=== PATIENT | female | born 1985 | race Caucasian/White ===

== ENCOUNTER 2017-11-01 13:30 | Inpatient (IN) | payer SELFPAY ==
[~2017-11-01] VITALS: Ht 149.9 cm; Wt 72.6 kg
--- NOTE | ~2017-11-01 | OP ---
PATIENT NAME: MALIKA AYALA MEDICAL RECORD: [id number] LOCATION:[id number] ADMISSION DATE:11/01/17 SURGEON: PAUL COTTO MD DATE OF OPERATION: 11/01/2017 PREOPERATIVE DIAGNOSES: 1. at term. 2. Prior section. 3. Spontaneous rupture of membranes. 4. Hepatitis C. POSTOPERATIVE DIAGNOSES: 1. at term. 2. Prior section. 3. Spontaneous rupture of membranes. 4. Hepatitis C. PROCEDURE: Repeat low transverse section. SURGEON: Paul Cotto MD ANESTHESIOLOGIST: Dr. Duenas ANESTHETIC: Spinal. FINDINGS: Viable female , vertex presentation, Apgars were 8 and 9, weight 2713 grams. Unremarkable uterus, tubes, and ovaries bilaterally. SPECIMENS REMOVED: Placenta. SPECIMEN DISPOSITION: Discarded. ESTIMATED BLOOD LOSS: Less than or equal to 800 cc. FLUIDS: 1200 cc lactated Ringer's. URINE OUTPUT: 225 cc of clear urine. COMPLICATIONS: None. DRAINS: Munoz to gravity. INDICATIONS: The patient is a 32-year-old G5, para 2-0-1-3 at 40 weeks and 2 days by patient history. The patient is not known to this practice and has been seen out of state. The patient has not been seen by an obstetrical provider for over a month. Earlier she was seen and labor was ruled out but had spontaneous rupture of membranes at 1845 this evening. The patient is consented for a repeat section and any indicated procedure. DESCRIPTION OF PROCEDURE: After informed consent was assured, the patient was taken to the operating room, anesthetic is obtained. The patient is now prepped and draped. An incision is made over the old scar after assessment of the anesthetic. The incision was carried down to the underlying layer of the fascia, which is opened OPERATIVE REPORT [id number] MALIKA AYALA in the midline and extended laterally. The rectus bellies were dissected free superiorly and inferiorly and then the rectus bellies were in the midline. Peritoneum was entered sharply and then the opening extended. The bladder blade was inserted. Low transverse hysterotomy was performed and infant was delivered onto the abdomen atraumatically. Cord was doubly clamped and cut and the was passed to the attendant. Placenta is now removed via Crede maneuver. Uterus was exteriorized, cleared of all clot and debris and the uterus closed in a running locked fashion with chromic stitch. [id number] stitch was applied at the left margin to obtain hemostasis at that corner. Inspection reveals adequate hemostasis as the posterior cul-de-sac is irrigated. Posterior cul-de-sac explored. No foreign objects identified and the uterus now returned to the abdomen. Again, the pelvis was irrigated and the pericolic gutters were explored. The incisions inspected and found to be hemostatic. Rectus bellies reapproximated in the midline with a single stitch of chromic. Fascia was closed with PDS. Subcutaneous tissues were irrigated, bleeding vessels cauterized, and then a plain gut stitch was used to reapproximate the space. Maryann are applied. Sterile dressing is applied on the wound. Sponge, lap and needle count is correct times 2 at the close of this procedure. TRANSINT:[id number] Voice Confirmation ID: [id number] DOCUMENT ID: [id number] PAUL COTTO MD CC: [id number] DICTATION DATE: 11/01/172127 GOVERNMENT PROFESSOR: 11/01/172251 ADM IN [place] [id number] [place] [id number]
[2017-11-01 15:53] LABS: APPEARANCE HAZY (CLEAR); BILIRUBIN NEGATIVE (NEGATIVE); COLOR YELLOW (YELLOW); GLUCOSE NEGATIVE (NEGATIVE); KETONE NEGATIVE (NEGATIVE); NITRITE NEGATIVE (NEGATIVE); PROTEIN TRACE mg/dL (NEGATIVE); UROBILINOGEN NORMAL (NORMAL)
[2017-11-01 15:55] LABS: BACTERIA MODERATE /hpf (NONE SEEN)
[2017-11-01 15:57] LABS: YEAST >1+ /hpf (NONE SEEN)
[2017-11-01 15:59] LABS: UDS - AMPHET NEGATIVE QUAL (NEGATIVE); UDS - BARB NEGATIVE QUAL (NEGATIVE); UDS - BENZO NEGATIVE QUAL (NEGATIVE); UDS - COCAINE NEGATIVE QUAL (NEGATIVE); UDS - OPIATE NEGATIVE QUAL (NEGATIVE); UDS - PCP NEGATIVE QUAL (NEGATIVE); UDS - THC POSITIVE QUAL (NEGATIVE)
[2017-11-01 19:57] LABS: HEMATOCRIT 36.7 % (36.0-48.0); HEMOGLOBIN 12.7 g/dL (12-16); MCH 32.4 pg (26.0-34.0); MCHC 34.6 g/dL (31.0-37.0); MCV 93.6 fL (80.0-100.0); MEAN PLATELET VOLUME 10.6 fL (7.4-10.4); RBC 3.92 10x6/uL (4.00-5.40); RDW 14.2 % (11.5-14.5); WBC 10.6 10x3/uL (4.8-10.8)
[2017-11-01] MEDS ORDERED: PRENATAL COMPLE1 TAB PO (20:20)
[2017-11-01] MEDS ORDERED: FERROUS SULFAT325 MG PO (20:21)
[2017-11-01 20:28] VITALS: BP 125/75; Ht 149.9 cm; Wt 72.6 kg
[2017-11-01 22:13] VITALS: BP 133/75
[2017-11-01 22:53] VITALS: BP 150/91
[2017-11-01 23:07] VITALS: BP 141/79
[2017-11-01 23:23] VITALS: BP 150/74
[2017-11-02] VITALS (11 sets, daily range): BP systolic 108–152; BP diastolic 57–86
[2017-11-02 08:49] LABS: HIV 1 & 2- RAPID SCREEN NEGATIVE (NEGATIVE)
[2017-11-03 03:00] VITALS: BP 119/64
[2017-11-03 04:15] LABS: RAPID PLASMA REAGIN Non Reactive (Non Reactive)
[2017-11-03 07:23] LABS: BASOPHILS 0.1 % (0-2); EOSINOPHILS 0.9 % (0-7); HEMATOCRIT 33.6 % (36.0-48.0); HEMOGLOBIN 11.4 g/dL (12-16); IMMATURE GRANULOCYTES 0.2 % (0-5); LYMPHOCYTES 27.4 % (15-50); MCH 31.9 pg (26.0-34.0); MCHC 33.9 g/dL (31.0-37.0); MCV 94.1 fL (80.0-100.0); MEAN PLATELET VOLUME 10.2 fL (7.4-10.4); MONOCYTES 6.3 % (2-11); NEUTROPHILS 65.1 % (40-80); PLATELET COUNT 171 10x3/uL (130-400); RBC 3.57 10x6/uL (4.00-5.40); RDW 14.4 % (11.5-14.5); WBC 9.5 10x3/uL (4.8-10.8)
[2017-11-03 09:11] VITALS: BP 124/76
[2017-11-03] MEDS ORDERED: IBUPROFEN800 MG PO (17:11)
[2017-11-03] MEDS ORDERED: PERCOCET 7.5/321 TAB PO (17:12)
[2017-11-04 17:07] LABS: RUBELLA IGG 1.52 index (Immune >0.99)
== END 2017-11-03 18:10 | disposition home or self-care (01) | DRG 765 ==
LOC: D.LDO 13:30 → D.LD 19:00
PROVIDERS: Obstetrics & Gynecology
PROC: 10D00Z1 Extraction of Products of Conception, Low, Open Approach (ICD-10-PCS; principal; 2017-11-01 20:56)
DX: O34.219 Maternal care for unspecified type scar from previous cesarean delivery (principal); O98.42 Viral hepatitis complicating childbirth; Z3A.40 40 weeks gestation of pregnancy; Z37.0 Single live birth; O99.334 Smoking (tobacco) complicating childbirth; B19.20 Unspecified viral hepatitis C without hepatic coma